=== PATIENT | male | born 2000 | race Hispanic/Latino ===

== ENCOUNTER 2022-05-21 12:35 | Emergency (ER) | payer BC ==
--- NOTE | 2022-05-21 13:48 | RAD REPORT ---
EXAM DESCRIPTION: CT - Head C Spine Cap Debbie Peña - 05/21/2022 1:25 pm CLINICAL HISTORY: Trauma, head and neck injury. Chest, abdomen and pelvis pain. fall from ladder COMPARISON: No comparisons TECHNIQUE: CT head without contrast. CT cervical spine without contrast with coronal and sagittal reformatted images. CT chest, abdomen and pelvis with coronal and sagittal reformatted images of the spine. All CT scans are performed using dose optimization technique as appropriate and may include automated exposure control or mA/KV adjustment according to patient size. FINDINGS: CT HEAD WITHOUT CONTRAST: No intracranial hemorrhage, hydrocephalus or extra-axial fluid collection. No acute large vascular te rritory infarct. The paranasal sinuses and mastoids are clear. The calvarium is intact. CT CERVICAL SPINE WITHOUT CONTRAST: No fracture or subluxation. The prevertebral soft tissues are normal in thickness. CT CHEST, ABDOMEN, PELVIS: Thorax: Chest Wall: No abnormal mass Lungs: No acute abnormality. Pleura: No effusions or pneumothorax. Joanna/Mediastinum: No lymphadenopathy. Aorta/Pulmonary Arteries: Unremarkable Heart: Normal size. Abdomen/Pelvis: Liver: No acute abnormality or suspicious lesions. Biliary: No biliary ductal dilatation. Stomach: No significant focal abnormality. Duodenum: No significant focal abnormality. Pancreas: No significant abnormality. Spleen: No significant abnormality. Adrenal: No suspicious lesions. Kidney/ureter: No hydronephrosis. No renal calculi. Retroperitoneum: No retroperitoneal adenopathy. Vascular: No aneurysm. Bowel: No significant focal abnormality. Normal appendix. Peritoneum: No ascites or free air. Bladder: Grossly unremarkable. Reproductive: No adnexal masses. Bones: No acute fracture. Other: n/a IMPRESSION: 1. No acute intracranial abnormality. 2. No acute fracture or traumatic malalignment cervical spine. 3. No evidence of significant trauma to the chest, abdomen, or pelvis.
--- NOTE | 2022-05-21 14:00 | EDPHYS ---
Physician Documentation [facility] Name: Kehinde Westbrook Age: 21 yrs Sex: Male : 2000 Arrival Date: 05/21/2022 Time: 12:46 Bed 9 Private MD: ED Physician Pb Schmitt HPI: 05/21 14:00 This 21 yrs old Male presents to ER via EMS with complaints of Fall Injury. ms3 14:00 Details of fall: The patient fell from a height, from a ladder, approximately 6 feet. ms3 Onset: The symptoms/episode began/occurred just prior to arrival. Associated injuries: The patient sustained upper back injury, injury to the low back. Severity of symptoms: At their worst the symptoms were moderate, in the emergency department the symptoms are unchanged. Historical: - Allergies: 13:04 No Known Allergies; em6 - Home Meds: 13:04 None [Active]; em6 - PMHx: 13:04 Anxiety; Hypertensive disorder; em6 - PSHx: 13:04 None; em6 - Immunization history:: Adult Immunizations up to date, Adult Immunizations unknown. - Immunization history: Last tetanus immunization: unknown. - Social history:: Smoking status: unknown. ROS: 14:00 Constitutional: Negative for fever, and chills. ENT: Negative for injury, pain, and ms3 discharge, Neck: Negative for injury, pain, and swelling, Cardiovascular: Negative for chest pain, and palpitations. Respiratory: Negative for shortness of breath, cough, wheezing, and pleuritic chest pain, Abdomen/GI: Negative for abdominal pain, nausea, vomiting, diarrhea, and constipation. 14:00 Back: Positive for pain at rest. 14:00 Skin: Positive for abrasion(s). 14:00 All other systems are negative. Exam: 14:00 Constitutional: This is a well developed, well nourished patient who is awake, alert, ms3 and in no acute distress. Head/Face: Normocephalic, atraumatic. Neck: Trachea midline, no cervical lymphadenopathy. Supple, full range of motion without nuchal rigidity, or vertebral point tenderness. No Meningismus. Chest/axilla: Normal chest wall appearance and motion. Nontender with no deformity. Cardiovascular: Regular rate and rhythm with a normal S1 and S2. No gallops, murmurs, or rubs. Normal PMI, no JVD. No pulse deficits. Respiratory: Lungs have equal breath sounds bilaterally, clear to auscultation and percussion. No rales, rhonchi or wheezes noted. No increased work of breathing, no retractions or nasal flaring. Abdomen/GI: Soft, non-tender, with normal bowel sounds. No distension or tympany. No guarding or rebound. No evidence of tenderness throughout. 14:00 Skin: injury, abrasion(s), moderate sized abrasion noted, of the left elbow. Vital Signs: 13:00 BP 143 / 85; Pulse 90; Resp 18; Temp 99.7; Pulse Ox 100% on R/A; Weight 88.45 kg; em6 Height 5 ft. 9 in. (175.26 cm); Pain 7/10; 14:00 BP 140 / 85; Pulse 88; Resp 18; Pulse Ox 100% on R/A; em6 13:00 Body Mass Index 28.80 (88.45 kg, 175.26 cm) em6 Huntington Coma Score: 13:03 Eye Response: spontaneous(4). Verbal Response: oriented(5). Motor Response: obeys em6 commands(6). Total: 15. 14:00 Eye Response: spontaneous(4). Verbal Response: oriented(5). Motor Response: obeys em6 commands(6). Total: 15. Trauma Score (Adult): 13:03 Eye Response: spontaneous(1); Verbal Response: oriented(1); Motor Response: obeys em6 commands(2); Systolic BP: > 89 mm Hg(4); Respiratory Rate: 10 to 29 per min(4); Huntington Score: 15; Trauma Score: 12 MDM: 12:46 Patient medically screened. kb 14:00 Differential diagnosis: abrasion, closed head injury, contusion, fracture, sprain, ms3 strain. Data reviewed: vital signs, nurses notes, lab test result(s), radiologic studies. Counseling: I had a detailed discussion with the patient and/or guardian regarding: the historical points, exam findings, and any diagnostic results supporting the discharge/admit diagnosis, radiology results, the need for outpatient follow up, to return to the emergency department if symptoms worsen or persist or if there are any questions or concerns that arise at home. Special discussion: I discussed with the patient/guardian in detail that at this point there is no indication for admission to the hospital. It is understood, however, that if the symptoms persist or worsen the patient needs to return immediately for re-evaluation. 05/21 14:02 Order name: CREATININE WHOLE BLOOD EDMS 05/21 12:51 Order name: CT Traumagram (Head C Spine CAP W Con); Complete Time: 13:57 kb 05/21 12:51 Order name: IV Start; Complete Time: 13:33 kb Administered Medications: No medications were administered Disposition Summary: 05/21/22 14:00 Discharge Ordered Location: Home ms3 Condition: Stable ms3 Diagnosis - Fall (on)(from) incline ms3 - Low back pain ms3 - Abrasion of left elbow ms3 Followup: ms3 - With: Ajay Buchanan DO - When: 2 - 3 days - Reason: Recheck today's complaints Discharge Instructions: - Discharge Summary Sheet ms3 - Acute Back Pain, Adult ms3 - Musculoskeletal Pain ms3 Forms: - Medication Reconciliation Form ms3 - Thank You Letter ms3 - Antibiotic Education ms3 - Prescription Opioid Use ms3 Prescriptions: - Ibuprofen 600 mg Oral Tablet - take 1 tablet by ORAL route every 6 hours As needed take with food; 30 tablet; ms3 Refills: 0, Product Selection Permitted Signatures: Dispatcher [employer] EDMS Cara Griffith, REPORTS ANALYSIS MANAGER-C REPORTS ANALYSIS MANAGER-Pb Davalos DO DO ms3 Jennifer Sanchez, RN RN em6
--- NOTE | 2022-05-21 14:00 | ER ---
Nurse's Notes [facility] Name: Kehinde Westbrook Age: 21 yrs Sex: Male : 2000 Arrival Date: 05/21/2022 Time: 12:46 Bed 9 Private MD: Diagnosis: Fall (on)(from) incline;Low back pain;Abrasion of left elbow Presentation: 05/21 13:00 Chief complaint: EMS states: "patient was at work when he fell from latter it was 5 ft em6 to 6 ft. patient denies LOC, but states blurred vision has improved since fall. states headache and pain in the left arm. abrasions noted in the left lower back and left upper arm. no nausea and vomiting.". Coronavirus screen: Vaccine status:. Ebola Screen: Patient negative for fever greater than or equal to 101.5 degrees Fahrenheit, and additional compatible Ebola Virus Disease symptoms. Initial Sepsis Screen: Does the patient meet any 2 criteria? No. Patient's initial sepsis screen is negative. Does the patient have a suspected source of infection? No. Patient's initial sepsis screen is negative. Risk Assessment: Do you want to hurt yourself or someone else?. Onset of symptoms was May 21, 2022. 13:00 Acuity: AMBER 3 em6 13:00 Method Of Arrival: EMS: [facility] em6 13:05 Care prior to arrival: None. Mechanism of Injury: Fall down 6 steps. Trauma event em6 details: Injury occurred: work Injury occurred: May 21, 2022. Trauma Activation: Consult Physician: ED Physician; Name: ; Notified At: ; Arrived At: Physician: General Surgeon; Name: ; Notified At: ; Arrived At: Physician: Radiology; Name: ; Notified At: ; Arrived At: Physician: Respiratory; Name: ; Notified At: ; Arrived At: Physician: Lab; Name: ; Notified At: ; Arrived At: Historical: - Allergies: 13:04 No Known Allergies; em6 - Home Meds: 13:04 None [Active]; em6 - PMHx: 13:04 Anxiety; Hypertensive disorder; em6 - PSHx: 13:04 None; em6 - Immunization history:: Adult Immunizations up to date, Adult Immunizations unknown. - Immunization history: Last tetanus immunization: unknown. - Social history:: Smoking status: unknown. Screenin:58 Abuse screen: Denies threats or abuse. Nutritional screening: No deficits noted. em6 Tuberculosis screening: No symptoms or risk factors identified. 13:00 Fall Risk Total Ruiz Fall Scale indicates No Risk (0-24 pts). em6 Primary Survey: 12:59 NO uncontrolled hemorrhage observed. Breathing/Chest: Respiratory effort: spontaneous, em6 Breath sounds: clear, bilaterally. Respiratory pattern: regular, Chest inspection: symmetrical rise and fall of the chest. Circulation: Pulses: palpable right radial artery, right posterior tibial artery, right dorsalis pedis artery, left radial artery, left posterior tibial artery, left dorsalis pedis artery, left carotid pulse and right carotid pulse. Skin color: pink, Skin temperature: warm, dry, Heart tones present. Disability Pupils are equal, round, reactive to light and accommodation. Client is alert. Exposure/Environment: There is no evidence of uncontrolled external bleeding. No obvious injuries are noted at this time. A warming method has been applied: A warm blanket has been provided to the patient. 13:04 Reassessment Breathing:. em6 Assessment: 12:55 General: Appears comfortable, Behavior is cooperative, anxious. Pain: Complains of pain em6 in posterior aspect of left lateral abdomen Pain does not radiate. Pain currently is 7 out of 10 on a pain scale. Quality of pain is described as sharp, Pain began 30 min ago. Is continuous, Alleviated by repositioning. Neuro: Level of Consciousness is awake, alert, obeys commands, Oriented to person, place, time, situation, Reports headache parietal area. Cardiovascular: Heart tones present Capillary refill < 3 seconds Patient's skin is warm and dry. Pulses are all present. Respiratory: Airway is patent Respiratory effort is even, unlabored, Respiratory pattern is regular, symmetrical, Breath sounds are clear bilaterally. GI: Abdomen is non-distended, Bowel sounds present X 4 quads. Abd is soft and non tender X 4 quads. : No signs and/or symptoms were reported regarding the genitourinary system. EENT: No signs and/or symptoms were reported regarding the EENT system. Derm: abrasions in the left upper arm and left lower back. redness noted. no bleeding. Musculoskeletal: Circulation, motion, and sensation intact. Range of motion: intact in all extremities. Injury Description: fall from latter 5ft-6ft. no LOC. reports blurry vision when he fell, but denies blurry vision as of now. 13:55 Reassessment: Patient appears in no apparent distress at this time. No changes from em6 previously documented assessment. Patient and/or family updated on plan of care and expected duration. Pain level reassessed. Patient is alert, oriented x 3, equal unlabored respirations, skin warm/dry/pink. Vital Signs: 13:00 BP 143 / 85; Pulse 90; Resp 18; Temp 99.7; Pulse Ox 100% on R/A; Weight 88.45 kg; em6 Height 5 ft. 9 in. (175.26 cm); Pain 7/10; 14:00 BP 140 / 85; Pulse 88; Resp 18; Pulse Ox 100% on R/A; em6 13:00 Body Mass Index 28.80 (88.45 kg, 175.26 cm) em6 Ed[place] Coma Score: 13:03 Eye Response: spontaneous(4). Verbal Response: oriented(5). Motor Response: obeys em6 commands(6). Total: 15. 14:00 Eye Response: spontaneous(4). Verbal Response: oriented(5). Motor Response: obeys em6 commands(6). Total: 15. Trauma Score (Adult): 13:03 Eye Response: spontaneous(1); Verbal Response: oriented(1); Motor Response: obeys em6 commands(2); Systolic BP: > 89 mm Hg(4); Respiratory Rate: 10 to 29 per min(4); Ed[place] Score: 15; Trauma Score: 12 ED Course: 12:46 Patient arrived in ED. kb 12:46 Pb Schmitt DO is Attending Physician. kb 12:48 Jennifer Sanchez, REX is Primary Nurse. em6 13:03 Triage completed. em6 13:04 Arm band placed on. em6 13:05 Placed in gown. Bed in low position. Side rails up X2. automobile club information clerk on. Pulse ox on. em6 NIBP on. Warm blanket given. 13:06 Patient maintains SpO2 saturation greater than 95% on room air. em6 13:06 Thermoregulation: warm blanket given to patient. em6 13:27 CT Traumagram (Head C Spine CAP W Con) In Process Unspecified. EDMS 13:33 Inserted saline lock: 22 gauge in right antecubital area, using aseptic technique. em6 13:59 Ajay Buchanan DO is Referral Physician. ms3 14:10 No provider procedures requiring assistance completed. IV discontinued, intact, em6 bleeding controlled, No redness/swelling at site. Pressure dressing applied. Administered Medications: No medications were administered Medication: 14:11 VIS not applicable for this client. em6 Intake: 14:10 PO: 0ml; IV: 50ml (IV Fluid); Total: 50ml. em6 Output: 14:10 Urine: 200ml (Voided); Total: 200ml. em6 Outcome: 14:00 Discharge ordered by MD. ms3 14:10 Condition: stable em6 14:10 Patient's length of stay was not longer than 2 hours. 14:11 Discharged to home ambulatory, with family. em6 14:11 Instructed on discharge instructions, follow up and referral plans. medication usage. 14:11 Patient left the ED. em6 Signatures: Dispatcher [employer] EDMS Cara Griffith, MICHAEL INK MAKER-Pb Davalos DO DO ms3 Jennifer Sanchez, RN RN em6
[2022-05-21 14:16] VITALS: TEMP 99.7; O2SAT 100
[2022-05-21 14:17] VITALS: BP 140/85
== END 2022-05-21 14:11 | disposition home or self-care (01) ==
LOC: ER 12:35
DX: S50.312A Abrasion of left elbow, initial encounter (principal); M54.50 Low back pain, unspecified; W11.XXXA Fall on and from ladder, initial encounter; I10 Essential (primary) hypertension
CPT/HCPCS: 82565; 70450; 72125; 71260; 74177; Q9967; 99285